=== PATIENT | female | born 1935 | race Caucasian/White ===

== ENCOUNTER 2016-09-17 02:22 | Emergency (ER) | payer MEDICARE, OTHER ==
[~2016-09-17 02:22] MED LIST: ASPIR 8181 MG PO; ASPIRIN81 M1 PO; BENZTROPINE MESY1 M1 PO; CIPRO250 MG PO; COGENTIN; COLACE100 M1 PO; DELSYM30 MG/5 ML PO; DULCOLAX10 MG PR; FLUPHENAZINE HCL5 M1 PO; GUIATUSS AC SY120 ML PO; MIRALAX17 G2 PO; NEURONTIN300 M1 PO; NORCO 5/325 TAB1 TAB PO; OMEPRAZOLE20 M2 PO; OMEPRAZOLE20 M4 PO; PLAVIX75 MG; PRILOSEC OTC20 MG; PROLIXIN5 MG; PROLIXIN5 MG PO; PROMETHAZINE-C118 ML GT; SUDAFED 12 HOU120 M1 PO; SYNTHROID50 MC1 PO; SYNTHROID50 MCG; TOPICORT TP; TOPROL XL50 M1 PO; TUMS200 MG PO; TYLENOL325 M2 PO; ZITHROMAX250 M1 PO
[2016-09-17] MEDS ORDERED: PLAVIX75 M1 PO (02:50)
[2016-09-17] MEDS ORDERED: MILK OF MAGNESIA PO (02:51)
[2016-09-17 03:02] LABS: BASO % 0.3 % (0-2); EOS % 0.5 % (0-7); EOSINOPHIL ABSOLUTE COUNT 0.1 tho/cmm (0.0-0.7); HCT-HEMATOCRIT 36.9 % (34.0-49.0); HGB-HEMOGLOBIN 12.9 gm/dl (12.0-15.5); IMMATURE GRANULOCYTES ABSOLUTE 0.05 tho/cmm (0-0.03); IMMATURE GRANULOCYTES PERCENT 0.5 % (0-0.3); LYMPH % 14.1 % (20-45); LYMPH ABSOLUTE COUNT 1.4 tho/cmm (0.8-4.5); MCH (MEAN CORPUSCULAR HGB) 33.2 pg (28.0-32.0); MCV (MEAN CELL VOLUME) 94.9 fl (82.0-96.0); MEAN PLATELET VOLUME 10.3 cmc (9.4-12.4); MONO % 5.9 % (0-12); MONOCYTE ABSOLUTE COUNT 0.6 tho/cmm (0.0-1.2); NEUTROPHIL ABSOLUTE COUNT 7.6 tho/cmm (1.6-8.0); NEUTROPHIL-AUTOMATED 7.6 tho/cmm (1.6-8.0); NEUTROPHILS % 78.7 % (40-80); PLATELET COUNT 321 tho/cmm (150-450); RED BLOOD COUNT 3.89 mil/cmm (4.00-5.20); RED CELL DISTRIBUTION WIDTH 13.9 % (12.4-16.4); WHITE BLOOD COUNT 9.6 tho/cmm (4.0-10.0)
[2016-09-17 03:12] LABS: ALB/GLOB RATIO 0.9 (0.8-2.0); ALBUMIN 3.6 g/dl (3.5-5.0); ALKALINE PHOSPHATASE 76 U/L (33-138); ALT/SGPT 25 U/L (12-78); ANION GAP 12 mmol/L (0-20); AST/SGOT 12 U/L (10-40); BILIRUBIN,TOTAL 0.5 mg/dl (0-1.5); BLOOD UREA NITROGEN 16 mg/dl (6-24); CALCIUM 8.8 mg/dl (8.5-10.5); CARBON DIOXIDE-VENOUS 28 mmol/L (22-32); CHLORIDE 98 mmol/l (96-110); CREATININE 0.95 mg/dl (0.50-1.10); GLUCOSE 117 mg/dL (70-110); POTASSIUM 4.4 mmol/L (3.7-5.1); SODIUM 134 mmol/L (135-145); eGFR VALUE FOR BLACK 66 mL/Min
[2016-09-17 03:17] LABS: URINE BILIRUBIN NEGATIVE (NEG); URINE BLOOD MODERATE (NEG); URINE GLUCOSE (UA) NEGATIVE (NEG); URINE KETONE NEGATIVE (NEG); URINE LEUKOCYTE ESTERASE NEGATIVE (NEG); URINE NITRITE NEGATIVE (NEG); URINE PROTEIN NEGATIVE (NEG)
[2016-09-17 03:19] LABS: URINE APPEARANCE CLEAR; URINE COLOR PALE YELLOW
[2016-12-14] MEDS ORDERED: ASPIR 8181 M1 PO (17:14)
[2016-12-14] MEDS ORDERED: COLACE100 M1 PO (17:15)
[2016-12-14] MEDS ORDERED: FLUPHENAZINE HCL5 M1 PO (17:15)
[2016-12-14] MEDS ORDERED: BENZTROPINE MESY1 M1 PO (17:15)
[2016-12-14] MEDS ORDERED: SYNTHROID50 MC1 PO (17:16)
[2016-12-14] MEDS ORDERED: NEURONTIN300 M1 PO (17:16)
[2016-12-14] MEDS ORDERED: TOPROL XL50 M1 PO (17:16)
[2016-12-14] MEDS ORDERED: LISINOPRIL2.5 M1 PO (17:16)
[2016-12-14] MEDS ORDERED: OMEPRAZOLE20 M4 PO (17:17)
[2016-12-14] MEDS ORDERED: PLAVIX75 M1 PO (17:17)
[2016-12-14] MEDS ORDERED: PROTONIX40 M2 PO (17:17)
[2016-12-14] MEDS ORDERED: MILK OF MAGNESIA PO (17:17)
[2016-12-14] MEDS ORDERED: CYCLOBENZAPRINE5 M1 PO (19:03)
[2016-12-14] MEDS ORDERED: MACROBID 100 M100 M1 PO (19:06)
[2016-12-26] MEDS ORDERED: MACROBID 100 M100 M1 PO (12:01)
[2016-12-26] MEDS ORDERED: CYCLOBENZAPRINE5 M1 PO (12:01)
[2016-12-26] MEDS ORDERED: CELEBREX200 M1 PO (12:02)
[2016-12-26] MEDS ORDERED: TYLENOL325 M2 PO (12:04)
[2016-12-28] MEDS ORDERED: IPRAT-ALBUT 0.5-3 ML AERO NEB ×2 (08:36→08:37)
[2016-12-28] MEDS ORDERED: ZITHROMAX250 M1 PO (08:42)
[2016-12-28] MEDS ORDERED: MUCINEX600 M1 PO (08:42)
== END 2016-09-17 04:32 ==
LOC: EDMED 02:22
PROVIDERS: Emergency Medicine Emergency Medical Services
DX: Z04.3 Encounter for examination and observation following other accident (principal); K21.9 Gastro-esophageal reflux disease without esophagitis
CPT/HCPCS: P9612

== ENCOUNTER 2016-10-06 23:13 | Emergency (ER) | payer MEDICARE, OTHER ==
[~2016-10-06 23:13] MED LIST changes: +MILK OF MAGNESIA PO; +PLAVIX75 M1 PO
[2016-10-07] MEDS ORDERED: NEURONTIN300 M1 PO (01:26)
[2016-10-07] MEDS ORDERED: PROTONIX40 M2 PO (01:28)
[2016-10-07] MEDS ORDERED: PRINIVIL5 M1 PO (01:29)
[2016-12-14] MEDS ORDERED: ASPIR 8181 M1 PO (17:14)
[2016-12-14] MEDS ORDERED: BENZTROPINE MESY1 M1 PO (17:15)
[2016-12-14] MEDS ORDERED: FLUPHENAZINE HCL5 M1 PO (17:15)
[2016-12-14] MEDS ORDERED: COLACE100 M1 PO (17:15)
[2016-12-14] MEDS ORDERED: TOPROL XL50 M1 PO (17:16)
[2016-12-14] MEDS ORDERED: SYNTHROID50 MC1 PO (17:16)
[2016-12-14] MEDS ORDERED: NEURONTIN300 M1 PO (17:16)
[2016-12-14] MEDS ORDERED: LISINOPRIL2.5 M1 PO (17:16)
[2016-12-14] MEDS ORDERED: PLAVIX75 M1 PO (17:17)
[2016-12-14] MEDS ORDERED: PROTONIX40 M2 PO (17:17)
[2016-12-14] MEDS ORDERED: OMEPRAZOLE20 M4 PO (17:17)
[2016-12-14] MEDS ORDERED: MILK OF MAGNESIA PO (17:17)
[2016-12-14] MEDS ORDERED: CYCLOBENZAPRINE5 M1 PO (19:03)
[2016-12-14] MEDS ORDERED: MACROBID 100 M100 M1 PO (19:06)
[2016-12-26] MEDS ORDERED: MACROBID 100 M100 M1 PO (12:01)
[2016-12-26] MEDS ORDERED: CYCLOBENZAPRINE5 M1 PO (12:01)
[2016-12-26] MEDS ORDERED: CELEBREX200 M1 PO (12:02)
[2016-12-26] MEDS ORDERED: TYLENOL325 M2 PO (12:04)
[2016-12-28] MEDS ORDERED: IPRAT-ALBUT 0.5-3 ML AERO NEB ×2 (08:36→08:37)
[2016-12-28] MEDS ORDERED: ZITHROMAX250 M1 PO (08:42)
[2016-12-28] MEDS ORDERED: MUCINEX600 M1 PO (08:42)
== END 2016-10-07 02:15 ==
LOC: EDMED 23:13
PROC: 2Y41X5Z Packing of Nasal Region using Packing Material (ICD-10-PCS; principal; 2016-10-07)
DX: R04.0 Epistaxis (principal); I50.9 Heart failure, unspecified; F20.9 Schizophrenia, unspecified; Z86.73 Personal history of transient ischemic attack (TIA), and cerebral infarction without residual deficits; Z88.0 Allergy status to penicillin; Z79.82 Long term (current) use of aspirin; Z79.899 Other long term (current) drug therapy